=== PATIENT | female | born 2000 | race African-American/Black ===

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

== ENCOUNTER 2022-07-11 17:35 | Emergency (ER) | payer MEDICAID ==
[~2022-07-11] VITALS: Ht 160 cm; Wt 57.0 kg
[2022-07-11 17:46] VITALS: BP 108/55
[2022-07-11] MEDS ORDERED: ACETAMINOPHEN 500MG TABLET PO ONE (19:30)
[2022-07-11] MEDS ORDERED: BACITRACIN ZINC OINT UDPKT TOP ONE (19:30)
[2022-07-11] MEDS ORDERED: LIDOCAINE HCL/PF 1% 10 MG/ML 5ML VIAL INFIL ONE (19:30)
[2022-07-11] MEDS ORDERED: BO1 TP (20:19)
[2022-07-11] MEDS ORDERED: ACET325C7 PO (20:19)
== END 2022-07-11 21:31 | disposition home or self-care (01) ==
LOC: ER 17:35
DX: O9A.211 Injury, poisoning and certain other consequences of external causes complicating pregnancy, first trimester (principal); S61.412A Laceration without foreign body of left hand, initial encounter; F12.90 Cannabis use, unspecified, uncomplicated; Z3A.01 Less than 8 weeks gestation of pregnancy; W25.XXXA Contact with sharp glass, initial encounter; Y93.89 Activity, other specified; Y92.89 Other specified places as the place of occurrence of the external cause; Y99.8 Other external cause status
CPT/HCPCS: 12002; 73120; 99283; Z7610